=== PATIENT | male | born 2000 | race Hispanic/Latino ===

== ENCOUNTER 2024-05-17 19:01 | Emergency (ER) | payer BC, SELFPAY ==
--- NOTE | ~2024-05-17 | XR_ITS ---
CHEST RADIOGRAPH, PA AND LATERAL CLINICAL HISTORY: cp . COMPARISON: None available TECHNIQUE: PA and lateral views of the chest. FINDINGS The cardiomediastinal silhouette is unremarkable. The lungs are clear. Visualized osseous structures and soft tissues are unremarkable. IMPRESSION: No focal infiltrate or effusion. Reviewed, dictated and finalized at location A. COMMANDER
--- NOTE | 2024-05-17 19:14 | ECG_ITS ---
Test Date: 2024-05-17 19:23:13 Measurements Intervals [place] Rate: 106 P: 70 [place]: 155 QRS: 85 QRSD: 101 T: -1 QT: 323 QTc: 431 Interpretive Statements SINUS TACHYCARDIA MINIMAL Q WAVES- ANTEROLATERAL LEADS INFERIOR INFARCT, AGE INDETERMINATE ABNORMAL ECG No previous ECG available for comparison Electronically Signed On 05-17-2024 20:02:23 MEDICAL DOCTOR MD by Louis Block D.O.
[2024-05-17 19:15] VITALS: BP 157/109; PULSE 90; RESP 16; TEMP 36.8; O2SAT 100
[2024-05-17 19:39] LABS: Basophils Percent Auto 0.3 % (0.2-1.2); Immature Granulocyte Absolute 0.02 K/mm3 (0.00-0.031); Immature Granulocyte Percent A 0.3 % (0-0.5); Lymphocytes Absolute Auto 2.16 K/mm3 (0.9-3.2); Lymphocytes Percent Auto 29.5 % (18.3-44.2); Mean Corpuscular HGB Conc 35.4 g/dl (32-36); Mean Corpuscular Hemoglobin 31.7 pg (26-34); Mean Corpuscular Volume 89.4 fl (80-100); Mean Platelet Volume 10.9 fl (7.4-10.4); Monocytes Absolute Auto 0.7 K/mm3 (0.1-0.6); Neutrophils Absolute Auto 4.5 K/mm3 (1.3-6.7); Neutrophils Percent Auto 60.9 % (45.5-73.1); Platelet Count Result 268 k/mm3 (150-375); Red Blood Count 5.37 M/mm3 (4.6-6.20); Red Cell Distribution Width 12.1 % (11.5-14.5); White Blood Count 7.3 K/mm3 (4.5-10.0)
[2024-05-17 19:50] LABS: Alanine Aminotransferase 23 U/L (6-50); Albumin Level 5.1 g/dL (3.5-5.1); Alkaline Phosphatase 70 U/L (38-126); Anion Gap 16 mmol/L (4-12); Aspartate Amino Transferase 35 U/L (17-59); Bilirubin,Total 1.5 mg/dL (0.2-1.3); Blood Urea Nitrogen 5 mg/dL (9-20); Calcium 10.2 mg/dL (8.4-10.2); Carbon Dioxide 23 mmol/L (22-30); Chloride 100 mmol/L (98-107); Estimated CRCL calculation 131 ml/min; Estimated Glomerular Filt Rate > 60; Glucose 101 mg/dL (65-110); Lipase 102 U/L (23-300); Potassium 3.4 mmol/L (3.4-5.0); Sodium 139 mmol/L (137-145)
[2024-05-17 19:53] LABS: Prothrombin Time 13.5 Seconds (11.1-14.7)
[2024-05-17 20:01] LABS: Troponin I < 0.012 ng/mL (0.000-0.034)
--- NOTE | 2024-05-17 22:25 | ECG_ITS ---
Test Date: 2024-05-18 00:06:52 Measurements Intervals [place] Rate: 76 P: 50 [place]: 164 QRS: 83 QRSD: 102 T: 14 QT: 353 QTc: 399 Interpretive Statements SINUS RHYTHM MINIMAL Q WAVES- LATERAL LEADS INFERIOR INFARCT, AGE INDETERMINATE ABNORMAL ECG Compared to ECG 05/17/2024 19:23:13 HEART RATE HAS DECREASED Electronically Signed On 05-18-2024 08:51:42 EVENT AV OPERATOR by Louis Block D.O.
[2024-05-17 23:32] VITALS: BP 139/89; PULSE 86; RESP 14; O2SAT 100
--- NOTE | 2024-05-17 23:37 | ED_ITS ---
HPI - Chest Pain General Chief Complaint: Chest Pain Stated Complaint: chest pain Time Seen by Provider: 05/17/24 23:21 Source: patient Mode of arrival: ambulatory Limitations: no limitations History of Present Illness HPI narrative: Patient presents with medial chest pain starting approximately 1 hr BOWLING ALLEY OPERATOR (4:45pm) when he was waiting for his car to be service. History of heartburn so went over to store and purchased Tums since that typically works (not chronically on meds for heartburn). No palpitations. Pain intensifies if he gets up to walk or if he turns his neck to either side (though R > L). Pain medial aspect of chest, otherwise not radiating. Was 6/10 in severity. Pain was constant but now improving and only with movement. No recent vigorous exercise. 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 Did not become diaphoretic. No underlying cardiac or respiratory history. Became short of breath. No nausea. No fever/cough/congestion. Does not have a PCP. No recent travel, DVT/PE, lower extremity edema (u/l or b/l), hemoptysis, or exogenous hormones. Cardiac risk factors: HTN no; HLD no; DM no; obese no; smoker - occasional cigarette. No personal history and no family member with ID <65yo. Related Data Allergies Allergy/AdvReac Type Severity Reaction Status Date / Time No Known Allergies Allergy Verified 05/18/24 00:33 [facility] Past Medical History Medical History Heartburn Social History Social History Smoking status: Current some day smoker Tobacco type: cigarettes Additional smoking assessment comments: occasional Occupation/Education: occupation Additional occupation/education comments: rn homecare Exam 2 Narrative: GENERAL: Well-appearing, well-nourished, and in no acute distress. HEAD: Normocephalic, atraumatic. EYES: Non injected, non icteric ENT: Nares clear, no rhinorrhea or epistaxis. NECK: Supple. CHEST: Speaking in full sentences. No respiratory distress. Lungs clear to auscultation bilaterally w/o wheezes, crackles, areas of consolidation. Pain mildly reproducible throughout but not at sternocosto junctions. No subcutaneous emphysema. HEART: Regular rate and rhythm. Normal S1 and S2. ABDOMEN: Soft, nondistended. EXTREMITIES: Normal range of motion. No lower extremity edema. SKIN: Warm, dry, no rash. NEURO: No focal deficits. Alert and oriented x3. PSYCH: Normal mood and affect. Course Vital Signs Vital signs: Vital Signs Temperature 98.2 F 05/17/24 19:15 Pulse Rate 90 05/17/24 19:15 Respiratory Rate 16 05/17/24 19:15 Blood Pressure 157/109 H 05/17/24 19:15 Pulse Oximetry 100 05/17/24 19:15 Oxygen Delivery Room Air 05/17/24 19:15 Temperature 98.2 F 05/17/24 19:15 Pulse Rate 86 05/17/24 23:32 Respiratory Rate 14 05/17/24 23:32 Blood Pressure 139/89 05/17/24 23:32 Pulse Oximetry 99 05/18/24 00:00 Oxygen Delivery Room Air 05/18/24 00:00 MDM - Chest Pain MDM Narrative Medical decision making narrative: Patient presents with shortness of breath. In the emergency department he is afebrile with vital signs notable for hypertension the resolved on repeat. Although PERC negative, did proceed with obtaining Dimer given initially tachycardic, associated SOB and EKG pattern. HEART SCORE History 2 highly suspicious 1 moderately suspicious 0 slightly suspicious History score [address] depression/elevation not due to LBBB, LVH, or digoxin [address] depression but LBBB, LVH, nonspecific repolarization changes 0 normal ECG score 1 Age 2 >/= 65 1 45-64 0 <45 Age score 1 Risk factors (HTN, hypercholesterolemia, DM, obesity with BMI >30, current smoker or cessation </=3mo), positive fam hx with parent or sibling with CVD before age 65, atherosclerotic disease (prior ID, PCI/CABG, CVA/TIA, or peripheral arterial disease) 2 >/= 3 risk factors or history of atherosclerotic dz 1 - 1-2 risk factors 0 no known risk factors Risk factor score 1 (occas smoker) Initial Troponin 2 >3 times normal limit 1 1-3 times normal limit 0 less than or equal to normal limit Troponin score 0 Total HEART Score 3 Patient received GI cocktail. Repeat troponin negative. D-dimer negative. Stable for discharge with outpatient follow up. Provided PCP referral as well. Provided Rx for OTC meds and GI medication. Differential Diagnosis Differential diagnosis: Likely pneumothorax, unstable angina pectoris, atypical chest pain, st elevation myocardial infarction, costochondritis, chest pain, biliary colic and other (PE; pericarditis/myocardits; acute viral syndrome) Lab Data Attestation: I reviewed the patient's lab results. 05/17/24 19:30 05/17/24 19:30 Labs: Lab Results 05/17/24 05/17/24 Range/Units 19:30 23:47 WBC 7.3 (4.5-10.0) K/mm3 RBC 5.37 (4.6-6.20) M/mm3 Hgb 17.0 (14.0-18.0) g/dL Hct 48.0 (42.0-52.0) % MCV 89.4 (80-100) fl MCH 31.7 (26-34) pg MCHC 35.4 (32-36) g/dl RDW 12.1 (11.5-14.5) % Plt Count 268 (150-375) k/mm3 MPV 10.9 H (7.4-10.4) fl Immature Gran % (Auto) 0.3 (0-0.5) % Neut % (Auto) 60.9 (45.5-73.1) % Lymph % (Auto) 29.5 (18.3-44.2) % [place] % (Auto) 9.0 H (2.6-8.5) % Eos % (Auto) 0.0 (0-4.4) % Baso % (Auto) 0.3 (0.2-1.2) % Lymph # (Auto) 2.16 (0.9-3.2) K/mm3 [place] # (Auto) 0.7 H (0.1-0.6) K/mm3 Eos # (Auto) 0.0 (0-0.3) K/mm3 Baso # (Auto) 0.0 (0.0-0.1) K/mm3 Abs Immat Gran (auto) 0.02 (0.00-0.031) K/mm3 Absolute Neuts (auto) 4.5 (1.3-6.7) K/mm3 Absolute Nucleated RBC 0.000 (0.0-0.012) K/mm3 Nucleated RBC % 0.0 (0.0-0.2) % PT 13.5 (11.1-14.7) Seconds INR 1.0 APTT 24.0 (22.3-36.8) Seconds D-Dimer < 0.27 (<0.48) ug/mL Sodium 139 (137-145) mmol/L Potassium 3.4 (3.4-5.0) mmol/L Chloride 100 (98-107) mmol/L Carbon Dioxide 23 (22-30) mmol/L Anion Gap 16 H (4-12) mmol/L BUN 5 L (9-20) mg/dL Creatinine 0.78 (0.7-1.3) mg/dL Estim Creat Clear Calc 131 ml/min Estimated GFR > 60 (59 - ) Glucose 101 (65-110) mg/dL Calcium 10.2 (8.4-10.2) mg/dL Total Bilirubin 1.5 H (0.2-1.3) mg/dL AST 35 (17-59) U/L ALT 23 (6-50) U/L Alkaline Phosphatase 70 (38-126) U/L Troponin I < 0.012 < 0.012 (0.000-0.034) ng/mL Total Protein 9.0 H (6.3-8.2) g/dL Albumin 5.1 (3.5-5.1) g/dL Lipase 102 (23-300) U/L Influenza A (RT-PCR) Negative (Negative) Influenza B (RT-PCR) Negative (Negative) RSV (RT-PCR) Negative (Negative) SARS-CoV-2 RNA (RT-PCR) Negative (Negative) Imaging Data Attestation: I personally reviewed and interpreted this imaging study as follows: My impression: Normal ECG Data EKG #1: Attestation: I personally reviewed and interpreted this ECG as follows: ECG completion date: 05/17/24 ECG completion time: 19:23 Prior ECG tracings: not available for review (No prior for comparison) Interpretation: Sinus tachycardia at a rate of 106 beats per minute. MT interval 155. QRS 101. QT/QTC 323/385. Good R-wave progression across the precordial leads. Patient does have S1 Q3 T3. Good R-wave progression across the precordial leads. T- wave inversions in leads 3 and AVF EKG #2: Attestation: I personally reviewed and interpreted this ECG as follows: ECG completion date: 05/18/24 ECG completion time: 00:06 Interpretation: Normal sinus rhythm at a rate of 76 beats per minute. MT interval 164. QRS 102. QT/QTC 353/384. Good R-wave progression across the precordial leads. T- wave inversion lead 3. S1 Q3 T3 still present. Discharge Plan Discharge Clinical Impression: Atypical chest pain Instructions: Antibiotic Form, Chest Pain (ED) Additional Instructions: As we discussed, no clear etiology for your symptoms identified from your EKGs, labs, chest x-ray, and viral swab. Acetaminophen/Tylenol (maximum 4000 mg per day) is safe to take with NSAIDs (ibuprofen/Motrin) for pain relief. Follow-up with primary care physician for consideration of outpatient workup. Since you do not have 1 the name of the doctors listed below. Return to the emergency department with any new or worsening symptoms. You can also trial the Antacid prescribed. Patient Language: Libyan Prescriptions: New ibuprofen 600 mg tablet 600 mg PO TID PRN (Reason: pain) Qty: 30 0RF acetaminophen 500 mg capsule 1,000 mg PO Q6H PRN (Reason: pain) Qty: 30 0RF alum-mag hydroxide-simeth [Liquid Antacid] 400-400-40 mg/5 mL suspension 10 ml PO TID PRN (Reason: indigestion) Qty: 1 0RF Follow-up/Referrals: PHYSICIAN,CLOSING MANAGER [Primary Care Provider] - éCsar Powell MD [Physician] - (family practice) Stand Alone Forms: Work/School Release IP Time of Disposition: 00:36
[2024-05-17 23:57] LABS: D Dimer < 0.27 ug/mL (<0.48)
[2024-05-18] VITALS: O2SAT 99
[2024-05-18 00:16] LABS: Troponin I < 0.012 ng/mL (0.000-0.034)
--- OUTSIDE RECORDS SUMMARY | 2024-05-18 00:21 | XMS_ITS | Referral Summary ---
Author Organization [facility] [address] Address [address] [facility] 5th [place] [address] Care Team Providers Care Engineer Conductor Name Role Phone Monica Lozada NP Primary Care Provider [phone] Encounters Date Type Department Care Team Description 02/26/2024 8:00 AM DITCHING MACHINE OPERATOR Telemedicine [facility] Family Medicine at [address] [place] [address] Monica Lozada NP Attention deficit hyperactivity disorder (ADHD), combined type from Last 3 Months Allergies No known active allergies Medications dextroamphetamine -amphetamine XR (ADDERALL XR) 20 mg 24 hr capsuleIndication s:Attention deficit hyperactivity disorder (ADHD), combined type Take 1 capsule (20 mg total) by mouth every morning 30 capsule 5 Active dextroamphetamine -amphetamine XR (ADDERALL XR) 20 mg 24 hr capsuleIndication s:Attention deficit hyperactivity disorder (ADHD), combined type Take 1 capsule (20 mg total) by mouth every morning 30 capsule 5 05/13/19 25 Discontinu ed(Reorder ) Active Problems Problem Noted Date Diagnosed Date Attention deficit hyperactiv ity disorder (ADHD), combined type 12/28/2023 Assessment & Plan (02/26/2024 8:19 AM DITCHING MACHINE OPERATOR): Improved, at goal CSA signed 12/28/2023 UDS appropriate 12/28/2023 [place] reviewed 12/28/2023 Continue Adderall XR 20mg daily Assessment & Plan (01/26/2024 8:11 AM CDT): Not at goal Increase Adderall XR to 20mg daily CSA signed 12/28/2023 U[place] appropriate 12/28/2023 [place] reviewed 12/28/2023 Previously lived in [place]. [place] for [place] reviewed as well Assessment & Plan (12/28/2023 10:42 AM CDT): Not at goal [place] reviewed 12/28/23 UDS ordered CSA signed 12/28/23 After UDS results, will send Vyvanse 20mg daily F/u 1 month Annual physical exam 12/28/2023 Assessment & Plan (12/28/2023 10:42 AM CDT): Discussed with patient current recommendations for routine screenings. Recommend colon cancer screening with colonoscopy or DNA stool testing such as Cologuard starting at age 45. Prostate cancer screening is recommended from 55 to 69yo. Discussed diet, exercise, and importance of maintaining a healthy weight. For smokers or previous smokers that have quit in the past 15 years, annual lung cancer screening is recommended via a low dose CT scan. This is recommended from 50-80yo. For men age 65 to 75 who have ever smoked it is recommended to undergo abdominal aortic aneurysm screening via ultrasound once. JANIE (generalized anxiety disorder) 12/28/2023 Immunizations Name Administration Dates Next Due Influenza, Unspecified 12/28/2023(Deferred: Lucy ent Refused) Social History Tobacco Use Types Packs/Day Years Used Date Smoking Tobacco: Never Smokeless Tobacco: Never Tobacco Cessation:Counseling Given: Not Answered AUDIT-C Answer Date Recorded Q1: How often do you have a drink containing alc ohol? 2-3 times a week 02/26/2024 Q2: How many drinks containi ng alcohol do you have on a typical day when you are drinking? 3 or 4 02/26/2024 Q3: How often do you have si x or more drinks on one occasion? Never 02/26/2024 PHQ-2 Answer Date Recorded PHQ-2 Total Score (If total score is 3 or more points, staff should administer the PHQ-9) 0 12/28/2023 Sex and Gender Information Value Date Recorded Sex Assigned at Not on file Legal Sex Male 4:48 PM CDT Gender Identity Not on file Sexual Orientation Not on file Last Filed Vital Signs Vital Sign Reading Time Taken Comments Blood Pressure 124/82 12/28/2023 10:15 AM CDT Pulse 93 12/28/2023 10:15 AM CDT Temperature 36.7 C (98.1 F) 12/28/2023 10:15 AM CDT Respiratory Rate 18 12/28/2023 10:15 AM CDT Oxygen Saturation 98% 12/28/2023 10:15 AM CDT Inhaled Oxygen Concentration - - Weight 81.6 kg (180 lb) 02/26/2024 8:07 AM DITCHING MACHINE OPERATOR v erbal Height 176.5 cm (5' 9.5 ) 02/26/2024 8:07 AM DITCHING MACHINE OPERATOR Body Mass Index 26.2 02/26/2024 8:07 AM DITCHING MACHINE OPERATOR Plan of Treatment Not on file Procedures Procedure Name Priority Date/Time Associated Diagnosis Comments HEPATITIS C ANTIBODY Routine 12/28/2023 10:57 AM CDT Encounter for hepatitis C screening test for low risk patient from Last 3 Months or Most Recently Relevant to Health Maintenance Results * Hepatitis C antibody Blood (12/28/2023 10:57 AM CDT) Hep C Ab Nonreactive Nonreactive Comment: Antibodies to HCV not detected. Does NOT exclude the possibility of recent exposure to HCV. Current interpretive data was last revised on 21 Testing performed by: [facility], [address] [facility] [place] [address] Blood 12/28/2023 10:5 7 AM CDT 12/28/2023 3:42 PM CDT us Monica Lozada NP LAB MICROBIOLOGY - GENERAL OR DERABLES Final Result [facility] [id number] [facility] Department [place] [address] from Last 3 Months or Most Recently Relevant to Health Maintenance Insurance [employer] ACCESS OOS Care Teams Engineer Conductor Relationship Specialty Start Date End Date Monica Lozada NP [address] [facility] [address] [place] [address] PCP - General Family Medicine 12/28/23
--- OUTSIDE RECORDS SUMMARY | 2024-05-18 00:21 | XMS_ITS | Clinical Summary ---
Author Organization [facility] [address] Address [address] [facility] 5th [place] [address] Care Team Providers Care Compliance Assistant Name Role Phone Monica Lozada NP Primary Care Provider [phone] Allergies No known active allergies Medications dextroamphetamine [...] 12/28/2023 Assessment & Plan (02/26/2024 8:19 AM QUALITY COORDINATOR): Improved, at goal CSA signed 12/28/2023 U[place] appropriate 12/28/2023 [place] 12/28/2023 Continue Adderall XR 20mg daily Assessment & Plan (01/26/2024 8:11 AM CDT): Not at goal Increase Adderall XR to 20mg daily CSA signed 12/28/2023 U[place] appropriate 12/28/2023 [place] 12/28/2023 Previously lived in [place]. [place] for [place] reviewed as well Assessment & Plan (12/28/2023 [...] ultrasound once. JANIE (generalized anxiety disorder) 12/28/2023 Encounters Date Type Department Care Team Description 02/26/2024 8:00 AM QUALITY COORDINATOR Telemedicine [facility] Family Medicine at [address] [place] [address] Monica Lozada NP Attention deficit hyperactivity disorder (ADHD), combined type from Last 3 Months Immunizations Name Administration Dates Next Due Influenza, Unspecified 12/28/2023(Deferred: Lucy ent Refused) Surgical History Surgery Date Site/Laterality Comments TESTICLE SURGERY WISDOM TOOTH EXTRACTION Medical History Medical History Date Comments ADHD (attention deficit hyperactivity disorder) Family History Medical History Relation Name Comments No Known Problems Father No Known Problems Mother Relation Name Status Comments Father Alive Mother Alive Social History Tobacco Use Types Packs/Day Years [...] on file Sexual Orientation Not on file Obstetrics History Last Filed Vital Signs Vital Sign Reading Time Taken Comments Blood Pressure 124/82 12/28/2023 10:15 AM CDT Pulse 93 12/28/2023 10:15 AM CDT Temperature 36.7 C (98.1 F) 12/28/2023 10:15 AM CDT Respiratory Rate 18 12/28/2023 10:15 AM CDT Oxygen Saturation 98% 12/28/2023 10:15 AM CDT Inhaled Oxygen Concentration - - Weight 81.6 kg (180 lb) 02/26/2024 8:07 AM QUALITY COORDINATOR v erbal Height 176.5 cm (5' 9.5 ) 02/26/2024 8:07 AM QUALITY COORDINATOR Body Mass Index 26.2 02/26/2024 8:07 AM QUALITY COORDINATOR Plan of Treatment Health Maintenance Due Date Last Done Comments DTaP/Tdap/Td Vaccine (1 - Tdap) 10/21/2010 Varicella Vaccines (1 of 2 - 13+ 2-dose series) 10/21/2012 HPV Vaccines (1 - Male 3-dos e series) 10/21/2014 Regular Well Visit/Exam 18-64 10/21/2017 Influenza Vaccine (#1) 2024 Postp oned from 12/06/2023 (Patient declined, but will receive in the future) Depression Screening 12/27/2024 12/28/2023 Hepatitis B Screening Completed 12/28/2023 Hepatitis C Screening Completed 12/28/2023 Pneumococcal vaccine <65 Aged Out No longer eligible based on patient's age to complete this topic Procedures Procedure Name Priority Date/Time Associated Diagnosis [...] last revised on 21 Testing performed by: [facility], [address] [facility], [place]., [address] Blood 12/28/2023 10:5 7 AM CDT 12/28/2023 3:42 PM CDT Monica Lozada NP LAB MICROBIOLOGY - GENERAL OR DERABLES Final Result [facility] [id number] [facility] Department [place] [address] from Last 3 Months or Most Recently Relevant to Health Maintenance Insurance [employer] OOS Care Teams Compliance Assistant Relationship Specialty Start Date End Date Monica Lozada NP [address] [facility] [address] [place] [id number] PCP - General Family Medicine 12/28/23
[2024-05-18 00:28] LABS: Influenza A QL RT-PCR Negative (Negative); Influenza B QL RT-PCR Negative (Negative); RSV RNA, RT-PCR Negative (Negative); SARS-CoV-2 RNA PCR Negative (Negative)
[2024-05-18] MEDS: KETOROLAC 30 MG/ML VIAL (*BKC) 15 MG IM (00:33)
[2024-05-18] MEDS: BELLADONNA ALK/PHENOB ELIX 10 ML, MAG HYDROX/ALUMINUM HYD/SIMETH 30 ML, LIDOCAINE 2% VI... PO (00:34)
== END 2024-05-18 00:54 | disposition home or self-care (01) ==
PROVIDERS: Student in an Organized Health Care Education/Training Program; Emergency Provider Student in an Organized Health Care Education/Training Program
DX: R07.89 Other chest pain (principal); Z20.822 Contact with and (suspected) exposure to COVID-19; F17.210 Nicotine dependence, cigarettes, uncomplicated; R94.31 Abnormal electrocardiogram [ECG] [EKG]
CPT/HCPCS: 36415; 71046; 80053; 83690; 84484; 85025; 85380; 85610; 85730; 87637; 93005; 96372; 99284; A9270; J1885